=== PATIENT | male | born 1955 | race African-American/Black ===

== ENCOUNTER 2017-03-26 10:03 | Emergency (ER) | payer OTHER ==
[~2017-03-26] VITALS: Ht 170.2 cm; Wt 80.6 kg
[~2017-03-26 10:03] MED LIST: ATORVASTATIN CA10 MG PO; BENICAR HCT 401 EACH PO
[2017-03-26] MEDS ORDERED: INDOCIN25 MG PO (13:39)
[2017-03-26 14:07] VITALS: BP 131/80
== END 2017-03-26 14:06 | disposition home or self-care (01) ==
LOC: EME 10:03
DX: M10.9 Gout, unspecified (principal); M25.562 Pain in left knee; E78.5 Hyperlipidemia, unspecified; I10 Essential (primary) hypertension
CPT/HCPCS: 76882; 99281; 99284

== ENCOUNTER 2017-08-19 11:43 | Emergency (ER) | payer OTHER ==
[~2017-08-19] VITALS: Ht 170.2 cm; Wt 77.7 kg
[~2017-08-19 11:43] MED LIST changes: +INDOCIN25 MG PO
[2017-08-19] MEDS ORDERED: MOTRIN600 MG PO (14:40)
[2017-08-19 14:52] VITALS: BP 114/72
== END 2017-08-19 14:52 | disposition home or self-care (01) ==
LOC: EME 11:43
DX: M76.60 Achilles tendinitis, unspecified leg (principal); I10 Essential (primary) hypertension; E78.5 Hyperlipidemia, unspecified; Z91.013 Allergy to seafood
CPT/HCPCS: 73610; 93005; 99281; 99284